=== PATIENT | female | born 1985 | race Caucasian/White ===

== ENCOUNTER 2023-07-23 16:35 | Emergency (ER) | payer BC, MEDICAID ==
[~2023-07-23] VITALS: Ht 170.2 cm; Wt 136.8 kg
[2023-07-23 16:43] VITALS: BP 150/96; PULSE 98; RESP 20; TEMP 97.9; O2SAT 98
[2023-07-23] MEDS ORDERED: NAPR-56 PO (16:55)
== END 2023-07-23 17:22 | disposition home or self-care (01) ==
LOC: ER 16:36
DX: S80.12XA Contusion of left lower leg, initial encounter (principal); W18.39XA Other fall on same level, initial encounter; Y93.89 Activity, other specified; Y92.89 Other specified places as the place of occurrence of the external cause; Y99.0 Civilian activity done for income or pay
CPT/HCPCS: 99282